=== PATIENT | male | born 1995 | race Caucasian/White ===

== ENCOUNTER 2019-08-12 15:01 | Outpatient (CLI) | payer MEDICAID ==
[~2019-08-12 15:01] MED LIST: NO HOME MEDS
== END 2019-08-12 23:59 | disposition home or self-care (01) ==
LOC: RAD 15:01
PROVIDERS: ATTEND Family Medicine
DX: Z86.69 Personal history of other diseases of the nervous system and sense organs (principal)
CPT/HCPCS: 95816